=== PATIENT | male | born 1980 | race Caucasian/White ===

== ENCOUNTER → 2023-10-28 09:00 | Outpatient (BNV) | payer BC, SELFPAY | PROVIDERS: Visit Provider Psychiatry & Neurology Psychiatry | DX: F33.2 Major depressive disorder, recurrent severe without psychotic features (principal); F41.1 Generalized anxiety disorder; F43.10 Post-traumatic stress disorder, unspecified; R41.840 Attention and concentration deficit; F12.980 Cannabis use, unspecified with anxiety disorder | CPT/HCPCS: 90792; 99213 ==

== ENCOUNTER 2023-11-02 08:00 | Outpatient (RCR) | payer BC, SELFPAY ==
[2023-10-18 09:32] VITALS: BMI 32.4
[2023-10-18 10:14] VITALS: BP 122/80; PULSE 71; TEMP 36.7
--- NOTE | 2023-10-18 14:10 | PC.ADMIT ---
Patient is a 43 year old single male who was referred to [facility] by his psychiatric prescriber d/t increased depression and anxiety for the past 3 months. Loss of his pet rabbit triggered re-emergence of grief and other losses in his life with other pets and relationships. Patient stated 2 years ago his partner of 16 years decided they did not want to be in a relationship and left and reports he has lost several rabbits since then. Patient stated at that time he started to drink ETOH, heavy use, for 2 weeks after his partner left then after the two weeks he cut down to drinking 2-3 drinks of whiskey daily at night with dinner. He stated that he has cut down use significantly and has had a total of 3-4 drinks since May 2023 as a result. Stated he has a family history of alcoholism and did not want to go down that path. Patient reports he is taking a leave of absence from work d/t symptoms. Patient works at a [employer] in [place] for almost 5 years. Stated he was having difficulty functioning at work d/t his symptoms. Patient is alert and oriented x4. Calm and cooperative. Denied SI currently patient stated, a few days ago or Wednesday it felt the mar were closing on me. I left work and drove home and had thoughts to crash my car and be done with it . Patient denied any plans or intent to kill himself. It was just a thought that goes off, I was upset . I gave Miguelito a copy of his safety plan if needed and reviewed this with him.
--- NOTE | 2023-10-19 17:42 | HO.PHP ---
PHP Admin, Rukhsana, informed the team that Miguelito is unable to come to the program today due to his mother getting in a car accident. Rukhsana reported no safety concerns and he will be in program tomorrow.
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
--- NOTE | 2023-10-21 16:04 | HO.PHP ---
Client's case has been opened and reviewed in treatment team.
--- NOTE | 2023-10-25 08:07 | HO.PHP ---
PHP staff member faxed over the referral for OP therapy for Miguelito Sheth to [facility] in [place]. PHP staff member is awaiting a phone call back in regards to scheduled appointment dates and times.
--- NOTE | 2023-10-27 21:39 | P.PNPSP_ITS ---
Subjective Subjective Date of Service: 10/27/23 Reason For Visit: MDD Interim History: Patient seen for follow-up today. Mood is okay today. Had a good day Wednesday which led to a better weekend. But difficult to maintain gains - tendency toward self-isolating, ruminating on past trauma and losses. Difficult not to feel pessimistic, self-critical. He tries to put on an agreeable countenance. Feels he is a people pleaser, and often people do not see how much he struggles. Describes interpersonal hypersensitivity, taking things very personally even when on some level he recognizes he is being irrational. At his worst moments, can be very undoing and causes considerable anxiety and emotional distress. Discusses the impact relational trauma and his vulnerabilities and perceived character deficits. Reflects on the toll past trauma and relational trauma has negatively impacted him: his struggles with trust, rejection sensitivity, fears of abandonment and difficulties connecting and establishing relationships with others. Sleep variable, delayed onset from overthinking, ruminating. Disruptions in sleep from hyperarousal, bordering on panic symptoms. Elevated heart rate, anxiousness, on occasion will wake in a full panic. He assumes he has nightmares but is not sure because never remembers his dreams. He had these issues with sleep even prior to being on WEllbutrin and Adderall. Says his sleep is no worse for wear with Adderall and believes may even be a bit better, because he is more productive/active during the day and will sleep a little better. Appetite fair but stable. Energy low-normal. No changes in his weight or health. Rates depression at 5 out of 10 in severity. Mood stability at 7/10. Irritability low, like 0-1/10. Medication Compliance: Yes Side effects from medications: No Attending Groups: Yes Review of Systems Acute medical concerns: No Mental Status Exam Mental Status Exam Narrative: Alert, oriented, in no acute distress. Calm, cooperative, engaged. No psychomotor agitation or neurovegetative retardation. Eye contact maintained. Mood anxious, affect variable, mood congruent. Speech normal. Thought process linear, coherent. Thought content related to stressors, denies any helplessness, hopelessness or SI.? No aggressive ideation or HI. No paranoia or delusional content elicited. No evidence of psychosis. Insight and judgment fair but adequate. Diagnostics Vital Signs (24Hr): BMI result Body Mass Index 32.4 Assessment & Plan Assessment & Plan (1) MDD (major depressive disorder), recurrent episode, severe: Qualifiers: Psychotic features: without psychotic features Qualified Code(s): F33.2 - Major depressive disorder, recurrent severe without psychotic features Status: Acute Code(s): F33.2 - Major depressive disorder, recurrent severe without psychotic features (2) PTSD (post-traumatic stress disorder): Status: Acute Code(s): F43.10 - Post-traumatic stress disorder, unspecified (3) REINALDO (generalized anxiety disorder): Status: Acute Code(s): F41.1 - Generalized anxiety disorder (4) Attention and concentration deficit: Status: Acute Code(s): R41.840 - Attention and concentration deficit (5) Cannabis use with anxiety disorder: Status: Acute Code(s): F12.980 - Cannabis use, unspecified with anxiety disorder Plan start prazosin 1 mg qhs to taregt hyperarousal/sleep start aripiprazole 2 mg qd (take 1/2 tablet x 2 days) to target irrational, intrusive thoughts/ruminating, PTSD sx may consider guanfacine ER 1 mg qAM continue duloxetine 60 mg qAM continue Wellbutrin XL 150 mg qAM continue Adderall XR 10 mg qAM continue lorazepam 1 mg qd PRN anxiety, insomnia routine lab order given continue to monitor Patient educated on: diagnosis, medication risk/benefits and substance abuse Informed Consent: understands Reason for contiued partial hosp. stay Substantial Risk for: inability to function, rapid decompensation and med/psych decompensation Certification I certify that partial hospital treatment is medically necessary due to the symptoms and problems resulting from the patient's mental illness and the failure to treat the patient at the partial hospital level of care would likely result in the patient requiring inpatient psychiatric care which could not be prevented at a less intensive level of care. Total time managing care of this patient today __30__ minutes. Discharge Plan Discharge Attending provider: Charis Young Medications: New aripiprazole 2 mg tablet 2 mg PO BEDTIME Qty: 20 0RF prazosin 1 mg capsule 1 mg PO BEDTIME Qty: 20 0RF Continued dextroamphetamine-amphetamine [Adderall XR] 10 mg Capsule,Extended Release 24hr 10 mg PO DAILY lorazepam 1 mg tablet 1 mg PO DAILY PRN (Reason: anxiety) bupropion HCl 150 mg tablet extended release 24 hr 150 mg PO QAM duloxetine 60 mg capsule,delayed release(DR/EC) 60 mg PO QAM Stand Alone Forms: Patient Portal Discharge page Print Language: Icelandic
--- NOTE | 2023-11-02 10:16 | HO.PHPPROGNO ---
Subjective Subjective Date of Service: 11/02/23 Reason For Visit: MDD Interim History: Patient seen for follow-up, anticipating discharge at the end of program today.? I had a pretty nice weekend, I was able to get out enjoy the weather and get some things accomplished Patient has been taking Abilify at 2 mg and says he is not sure but thinks it might be helping. He felt more organized and more motivated and better able to follow through with things he wanted to get accomplished. He was especially surprised that he was able to black pickler a book and start reading, I can't recall when I was last able to focus on reading a book He plans to keep moving forward . He plans on attending therapy regularly and learn to be better adept at utilizing his coping skills. Reports no acute issues or concerns. Medication compliant, medications well-tolerated. Denies any adverse effects.?He says he is pleasantly surprised he doesn't have a medicated feeling (being on new medications)...I feel normal so to speak Mood is stable. He endeavors to build more connections and live his life with more purpose. ? Denies any hopelessness or SI. Denies thoughts of harming self or others at this time. Denies any aggressive ideation or HI. Denies any paranoia or AH or VH. Sleep is better with prazosin, appetite and energy are stable. Mental Status Exam Mental Status Exam Narrative: Alert, oriented, in no acute distress. Calm, cooperative, engaged. No psychomotor agitation or neurovegetative retardation. Eye contact maintained. Mood better, affect appropriate, mood congruent. Speech normal. Thought process more goal-directed. Thought content related to stressors, denies any helplessness, hopelessness or SI.?Future-oriented. No aggressive ideation or HI. No paranoia or delusional content elicited. No evidence of psychosis. Insight and judgment good. Diagnostics Vital Signs (24Hr): BMI result Body Mass Index 32.4 Assessment & Plan Assessment & Plan (1) MDD (major depressive disorder), recurrent episode, severe: Qualifiers: Psychotic features: without psychotic features Qualified Code(s): F33.2 - Major depressive disorder, recurrent severe without psychotic features Status: Acute Code(s): F33.2 - Major depressive disorder, recurrent severe without psychotic features (2) PTSD (post-traumatic stress disorder): Status: Acute Code(s): F43.10 - Post-traumatic stress disorder, unspecified (3) REINALDO (generalized anxiety disorder): Status: Acute Code(s): F41.1 - Generalized anxiety disorder (4) Attention and concentration deficit: Status: Acute Code(s): R41.840 - Attention and concentration deficit (5) Cannabis use with anxiety disorder: Status: Acute Code(s): F12.980 - Cannabis use, unspecified with anxiety disorder Plan Discharge from [facility] continue prazosin 1 mg qhs to taregt hyperarousal/sleep continue aripiprazole 2 mg qd to target irrational, intrusive thoughts/ruminating, PTSD sx continue duloxetine 60 mg qAM continue Wellbutrin XL 150 mg qAM continue Adderall XR 10 mg qAM continue lorazepam 1 mg qd PRN anxiety, insomnia will defer further medication management to his OP provider whom he meets with next WednesdayNovember 07 Patient educated on: diagnosis and medication risk/benefits Informed Consent: understands Reason for contiued partial hosp. stay Substantial Risk for: stable for discharge Certification I certify that partial hospital treatment is medically necessary due to the symptoms and problems resulting from the patient's mental illness and the failure to treat the patient at the partial hospital level of care would likely result in the patient requiring inpatient psychiatric care which could not be prevented at a less intensive level of care. Total time managing care of this patient today _30___ minutes. Discharge Plan Discharge Attending provider: Charis Young Medications: New aripiprazole 2 mg tablet 2 mg PO BEDTIME Qty: 20 0RF prazosin 1 mg capsule 1 mg PO BEDTIME Qty: 20 0RF Continued dextroamphetamine-amphetamine [Adderall XR] 10 mg Capsule,Extended Release 24hr 10 mg PO DAILY lorazepam 1 mg tablet 1 mg PO DAILY PRN (Reason: anxiety) bupropion HCl 150 mg tablet extended release 24 hr 150 mg PO QAM duloxetine 60 mg capsule,delayed release(DR/EC) 60 mg PO QAM Stand Alone Forms: Patient Portal Discharge page Patient Education: Depression (DC) Print Language: Tajik Telehealth Telehealth Location of provider rendering services: other (private office) Location of patient: other ([facility]) Patient Identification confirmed using: Name, : Yes Telehealth method: video Patient verbally consented to treatment: Yes
== END 2023-11-02 23:59 | disposition home or self-care (01) ==
LOC: HO.PHPA 08:00
PROVIDERS: Visit Provider Psychiatry & Neurology Psychiatry
DX: F33.2 Major depressive disorder, recurrent severe without psychotic features (principal); F41.1 Generalized anxiety disorder; F43.10 Post-traumatic stress disorder, unspecified; R41.840 Attention and concentration deficit; F12.980 Cannabis use, unspecified with anxiety disorder; Z79.899 Other long term (current) drug therapy
CPT/HCPCS: 90791; 90853